=== PATIENT | female | born 1970 | race Caucasian/White ===

== ENCOUNTER 2017-08-13 09:13 | Emergency (ER) | payer SELFPAY ==
[~2017-08-13] VITALS: Ht 160 cm; Wt 49.9 kg
[2017-08-13 12:35] VITALS: BP 121/70
== END 2017-08-13 12:35 | disposition home or self-care (01) ==
LOC: ED 09:13
DX: R21 Rash and other nonspecific skin eruption (principal); J98.01 Acute bronchospasm; F17.210 Nicotine dependence, cigarettes, uncomplicated; R13.10 Dysphagia, unspecified; Z88.8 Allergy status to other drugs, medicaments and biological substances
CPT/HCPCS: J0171; J2930; J3490; J7030